=== PATIENT | female | born 1930 | race Caucasian/White ===

== ENCOUNTER → 2017-02-13 | Outpatient (CLI) | payer MEDICARE, OTHER ==
--- NOTE | 2017-02-14 08:55 | MM ---
Reason for exam: screening (asymptomatic). Last mammogram was performed 1 year ago. History: Patient is postmenopausal. Took estrogen for 3 years beginning at age 41. Physical Findings: A clinical breast exam by your physician is recommended on an annual basis and results should be correlated with mammographic findings. MG 3D Screening Mammo W/Cad Bilateral CC and MLO view(s) were taken. Prior study comparison: February 11, 2016, bilateral MG 3d screening mammo w/cad. February 09, 2015, bilateral MG screening mammo w CAD. The breast tissue is heterogeneously dense. This may lower the sensitivity of mammography. There is chronic nodularity bilaterally. There is no dominant lesion. No significant changes when compared with prior studies. ASSESSMENT: Benign, BI-RAD 2 RECOMMENDATION: Routine screening mammogram of both breasts in 1 year.
== END | disposition home or self-care (01) ==
LOC: RADMAMWWP 12:41
PROVIDERS: ATTEND Family Medicine
DX: Z12.31 Encounter for screening mammogram for malignant neoplasm of breast (principal)
CPT/HCPCS: 77063; G0202

== ENCOUNTER 2017-11-27 15:18 | Emergency (ER) | payer MEDICARE, OTHER ==
[2017-11-27 16:39] VITALS: RESP 18
--- NOTE | 2017-11-27 17:00 | ED ---
General Adult HPI - General Chief complaint: Head Injury Stated complaint: fall Time Seen by Provider: 11/27/17 15:30 Source: patient, RN notes reviewed Mode of arrival: wheelchair Limitations: no limitations - History of Present Illness Initial comments: This is an 87-year-old female presents emergency department because she hit her head 1 week ago. Patient states she felt resting position backwards and then hit her head on the ground. Patient states she did not lose consciousness and had no symptoms initially. Patient states a couple days went by and then one morning she woke up and had a little bit of dizziness and since then the dizziness is subsided but her friend today told her that she should go get checked out because of the dizziness. Patient denies any headache patient denies any bump or lump on the head. Patient denies any blood thinners. Patient denies any numbness weakness. Patient denies any chest pain difficulty breathing shortness of breath or palpitations. Patient denies abdominal pain patient denies any nausea vomiting diarrhea however she states when she had the dizziness is past she was a little nauseous. Patient states she has been nauseous since. - Related Data Home Medications Medication Instructions Recorded Confirmed Ascorbic Acid [Vitamin C] 500 mg PO DAILY 02/27/14 11/27/17 Aspirin 81 mg PO DAILY 02/27/14 11/27/17 Atenolol [Tenormin] 25 mg PO BID 02/27/14 11/27/17 Calcium Carbonate/Vitamin D3 1 tab PO BID 02/27/14 11/27/17 [Calcium 600-Vit D3 400 Tablet] Celecoxib [CeleBREX] 200 mg PO DAILY 02/27/14 11/27/17 Desloratadine 5 mg PO DAILY 02/27/14 11/27/17 Ferrous Sulfate [Feosol] 325 mg PO DAILY 02/27/14 11/27/17 Multivitamin/Iron/Folic Acid 1 tab PO DAILY 02/27/14 11/27/17 [Centrum Complete Multivit Tab] Omeprazole [PriLOSEC] 20 mg PO AC-BRKFST 02/27/14 11/27/17 Simvastatin [Zocor] 40 mg PO HS 02/27/14 11/27/17 Acetaminophen [Tylenol Arthritis] 650 mg PO BID PRN 11/27/17 11/27/17 Glucosam/Chuy-Msm1/C/Mohit/Bosw 1 tab PO BID 11/27/17 11/27/17 [Glucosamine-Chondroitin Tablet] Losartan/Hydrochlorothiazide 1 tab PO DAILY 11/27/17 11/27/17 [Losartan-Hctz 100-25 mg Tab] Vit A/Vit C/Vit E/Zinc/Copper 1 cap PO DAILY 11/27/17 11/27/17 [ICAPS SOFTGEL] glipiZIDE XL [Glucotrol Xl] 10 mg PO DAILY 11/27/17 11/27/17 metFORMIN HCL [Glucophage] 1,000 mg PO BID 11/27/17 11/27/17 Allergies Allergy/AdvReac Type Severity Reaction Status Date / Time No Known Allergies Allergy Verified 11/27/17 16:39 Review of Systems ROS Statement: Those systems with pertinent positive or pertinent negative responses have been documented in the HPI. ROS Other: All systems not noted in ROS Statement are negative. Past Medical History Past Medical History: Coronary Artery Disease (CAD), Diabetes Mellitus, Hyperlipidemia, Hypertension, Osteoarthritis (OA) Additional Past Medical History / Comment(s): degenerative disc, History of Any Multi-Drug Resistant Organisms: None Reported Past Surgical History: Appendectomy, Cholecystectomy, Hysterectomy Additional Past Surgical History / Comment(s): Open cholecystectomy, partial hysterectomy, appendectomy, cataract surgery with lens implants, colonoscopy 5 years ago. Past Anesthesia/Blood Transfusion Reactions: No Reported Reaction Past Psychological History: No Psychological Hx Reported Smoking Status: Never smoker Past Alcohol Use History: Occasional Past Drug Use History: None Reported - Past Family History Mother Family Medical History: Cancer (Mother at age of 56 from liver cancer) Father Family Medical History: Cancer (Father at age of 91 from old age but he also had prostate cancer.), Prostate Disorder Sister(s) Family Medical History: No Reported History (Was sister at age of 93 from old age) Brother(s) Family Medical History: No Reported History (He had 5 brothers, one still alive the other for in second world war the other one after the second world war when he committed suicide and the third one had CAD.) Son(s) Family Medical History: No Reported History (2 sons no major medical problem.) Daughter(s) Family Medical History: No Reported History (3 daughters no major medical problems.) General Exam - General Exam Comments Initial Comments: GENERAL: Patient is well-developed and well-nourished. Patient is nontoxic and well- hydrated and is in no acute distress. I palpated the scalp and examined no signs of any trauma are noted ENT: Neck is soft and supple. No significant lymphadenopathy is noted. Oropharynx is clear. Moist mucous membranes. Neck has full range of motion without eliciting any pain EYES: The sclera were anicteric and conjunctiva were pink and moist. Extraocular movements were intact and pupils were equal round and reactive to light. Eyelids were unremarkable. PULMONARY: Unlabored respirations. Good breath sounds bilaterally. No audible rales rhonchi or wheezing was noted. CARDIOVASCULAR: There is a regular rate and rhythm without any murmurs gallops or rubs. ABDOMEN: Soft and nontender with normal bowel sounds. No palpable organomegaly was noted. There is no palpable pulsatile mass. SKIN: Skin is clear with no lesions or rashes and otherwise unremarkable. NEUROLOGIC: Patient is alert and oriented x3. Cranial nerves II through XII are grossly intact. Motor and sensory are also intact. Normal speech, volume and content. Symmetrical smile. MUSCULOSKELETAL: Normal extremities with adequate strength and full range of motion. LYMPHATICS: No significant lymphadenopathy is noted PSYCHIATRIC: Normal psychiatric evaluation. Normal interpersonal interactions appears functionally intact in deals appropriately with others. No signs of depression. No signs of anxiety. Limitations: no limitations Course Vital Signs 11/27/17 11/27/17 15:23 16:37 Temperature 98.0 F Pulse Rate 84 97 Respiratory 20 18 Rate Blood Pressure 137/70 172/73 O2 Sat by Pulse 96 98 Oximetry Medical Decision Making - Medical Decision Making CT of the head showed no acute abnormality. Since patient was asymptomatic at this point I decided to have the patient go home and follow-up with primary medical care doctor. Patient was in agreement with this Disposition Clinical Impression: Head injury Disposition: HOME SELF-CARE Instructions: Concussion (ED) Is patient prescribed a controlled substance at d/c from ED?: No Referrals: Eddi Figueroa MD [Primary Care Provider] - 1-2 days Time of Disposition: 17:44
--- NOTE | 2017-11-27 17:28 | CT ---
EXAMINATION: CT brain wo con DATE AND TIME: 11/27/2017 5:05 PM ORDERING PROVIDER: Liam Turcios MD CLINICAL INDICATION: Pain after injury, back of head. TECHNIQUE: Standard departmental protocol. DLP 1079 mGy-cm. COMPARISON: None. DESCRIPTION: The calvarium is intact. There is no skull fracture or intracranial hemorrhage. There is no mass or mass effect. There is bilateral william radiata and centrum semiovale low attenuation, but there is no definite new attenuation defect. Remainder of the intra-axial and extra-axial compartmen t examination is unremarkable. The paranasal sinuses, middle ear cavities, and mastoid sinus air cell s are clear. The orbits are intact. IMPRESSION: NO DEFINITE ACUTE CT PROCESS.
[2017-11-27 19:35] VITALS: BP 187/83; PULSE 86; TEMP 97.5
== END 2017-11-27 18:20 | disposition home or self-care (01) ==
LOC: EC 15:18
DX: S09.90XA Unspecified injury of head, initial encounter (principal); I25.10 Atherosclerotic heart disease of native coronary artery without angina pectoris; E11.9 Type 2 diabetes mellitus without complications; E78.5 Hyperlipidemia, unspecified; I10 Essential (primary) hypertension; M19.90 Unspecified osteoarthritis, unspecified site; Z79.82 Long term (current) use of aspirin; Z79.1 Long term (current) use of non-steroidal anti-inflammatories (NSAID); Z79.84 Long term (current) use of oral hypoglycemic drugs; Z79.899 Other long term (current) drug therapy; W01.0XXA Fall on same level from slipping, tripping and stumbling without subsequent striking against object, initial encounter; Y92.009 Unspecified place in unspecified non-institutional (private) residence as the place of occurrence of the external cause
CPT/HCPCS: 70450; 99283

== ENCOUNTER → 2018-03-23 | Outpatient (CLI) | payer MEDICARE, OTHER ==
--- NOTE | 2018-03-26 10:46 | MM ---
Reason for exam: screening (asymptomatic). Last mammogram was performed 1 year and 1 month ago. History: Patient is postmenopausal. Took estrogen for 3 years beginning at age 41. Physical Findings: A clinical breast exam by your physician is recommended on an annual basis and results should be correlated with mammographic findings. MG 3D Screening Mammo W/Cad Bilateral CC and MLO view(s) were taken. Prior study comparison: February 13, 2017, bilateral MG 3d screening mammo w/cad. February 11, 2016, bilateral MG 3d screening mammo w/cad. The breast tissue is heterogeneously dense. This may lower the sensitivity of mammography. Benign appearing bilateral calcifications. No suspicious abnormality. No significant changes when compared with prior studies. ASSESSMENT: Benign, BI-RAD 2 RECOMMENDATION: Routine screening mammogram of both breasts in 1 year.
== END | disposition home or self-care (01) ==
LOC: RADMAMWWP 14:29
PROVIDERS: ATTEND Family Medicine
DX: Z12.31 Encounter for screening mammogram for malignant neoplasm of breast (principal)
CPT/HCPCS: 77063; 77067